=== PATIENT | male | born 1970 | race Caucasian/White ===

== ENCOUNTER 2017-02-08 03:48 | Emergency (ER) | payer OTHER ==
[~2017-02-08] VITALS: Ht 170.2 cm; Wt 76.5 kg
[2017-02-08 04:00] VITALS: Ht 170.2 cm; Wt 76.5 kg
[2017-02-08] MEDS ORDERED: ONDANSETRON 4 MG INJ IV STA (05:14)
[2017-02-08] MEDS ORDERED: morphine 4 MG/ML VIAL IV STA (05:14)
[2017-02-08 06:18] LABS: BASOPHIL # 0.1 10^3/ul (0.0-0.1); BASOPHILS % 0.7 % (0.0-2.0); EOSINOPHILS # 0.2 10^3/ul (0.0-0.5); EOSINOPHILS % 2.2 % (0.0-7.0); HEMOGLOBIN 15.3 g/dl (14.0-18.0); LYMPHOCYTES % 35.8 % (15.0-51.0); MEAN CORPUSCULAR HEMOGLOBIN 30.5 pg (29.0-33.0); MEAN CORPUSCULAR HGB CONC 36.4 g/dl (32.0-37.0); MEAN CORPUSCULAR VOLUME 83.7 fl (82.0-101.0); MONOCYTE # 0.7 10^3/ul (0.3-0.9); MONOCYTES % 8.4 % (0.0-11.0); NEUTROPHIL # 4.4 10^3/ul (1.6-7.5); NEUTROPHILS % 52.7 % (39.0-77.0); PLATELET COUNT 249 10^3/UL (140-415); RED BLOOD COUNT 5.02 10^6/ul (4.70-6.10); RED CELL DISTRIBUTION WIDTH 12.8 % (11.5-14.5); WHITE BLOOD COUNT 8.3 10^3/ul (4.8-10.8)
--- NOTE | 2017-02-08 06:34 | RADRPT ---
PROCEDURE: CHEST - 1 VIEW CLINICAL INDICATION: 46-year-old male with chest pain. TECHNIQUE: A single frontal AP portable view of the chest was performed. The images were reviewed on a PACS workstation. COMPARISON: None. FINDINGS: The cardiomediastinal silhouette has a normal appearance. There is no evidence for an infiltrate. There is no evidence for congestive heart failure. There is no evidence for pneumothorax. The osseou s structures are intact. IMPRESSION: No evidence for active cardiopulmonary disease. .Clem Short MD, MD Date Time Electronically viewed and signed by .Clem Short MD, on 02/08/2017 06:34 .M/
[2017-02-08 06:59] LABS: ALANINE AMINOTRANSFERASE 37 IU/L (13-69); ALBUMIN 4.5 g/dl (3.3-4.9); ALBUMIN/GLOBULIN RATIO 1.25; ALKALINE PHOSPHATASE 81 IU/L (42-121); ANION GAP 17 (8-16); ASPARTATE AMINO TRANSFERASE 21 IU/L (15-46); BILIRUBIN,INDIRECT 0.5 mg/dl (0-1.1); BILIRUBIN,TOTAL 0.5 mg/dl (0.2-1.3); BLOOD UREA NITROGEN 15 mg/dl (7-20); CALCIUM 9.7 mg/dl (8.4-10.2); CARBON DIOXIDE 26 mmol/L (21-31); CHLORIDE 102 mmol/L (97-110); CREATININE 0.69 mg/dl (0.61-1.24); GLUCOSE 233 mg/dl (70-220); POTASSIUM 4.1 mmol/L (3.5-5.1); SODIUM 141 mmol/L (135-144); TOTAL PROTEIN 8.1 g/dl (6.1-8.1)
--- NOTE | 2017-02-08 07:14 | ERD ---
ER Documentation Chief Complaint Chief Complaint chest pain x 3 days on and off w/ insomnia HPI 46-year-old male with left-sided chest pain for 4 days. His pain started after a coughing episode. He states the pain is in the anterior chest and radiates to his back. No alleviating or exacerbating factors. Pain is sharp, constant. It disturbs his sleep. He rates that a 7 out of 10. Denies pleurisy. No associated shortness of breath, hemoptysis, dizziness, diaphoresis. No family history of CAD. ROS All systems reviewed and are negative except as per history of present illness. Medications Home Meds Active Scripts Ibuprofen* (Motrin*) 600 Mg Tab, 600 MG PO Q6H Y for PAIN AND OR ELEVATED TEMP, #30 TAB Prov:JAMAICA WADE MD 02/08/17 Allergies Allergies: Coded Allergies: No Known Allergy (Unverified , 09/23/13) PMhx/Soc Medical and Surgical Hx: pt denies Surgical Hx Hx Miscellaneous Medical Probl: Yes (DM) Hx Alcohol Use: No Hx Substance Use: No Hx Tobacco Use: No Smoking Status: Never smoker FmHx Family History: diabetes Physical Exam Vitals Vital Signs Date Time Temp Pulse Resp B/P Pulse Ox O2 Delivery O2 Flow Rate FiO2 02/08/17 09:26 54 16 142/91 99 Room Air 02/08/17 07:23 54 18 131/88 100 Room Air 02/08/17 06:00 57 17 140/86 100 Room Air 02/08/17 06:00 Nasal Cannula 2 02/08/17 04:00 97.8 67 20 159/90 100 Physical Exam Const: Well-appearing, nontoxic, no apparent distress, speaking in full sentences Head: Atraumatic Eyes: Normal Conjunctiva ENT: Normal External Ears, Nose and Mouth. Neck: Full range of motion..~ No meningismus. Resp: Clear to auscultation bilaterally Chest wall : nontender to palpation, no crepitus: Cardio: Regular rate and rhythm, no murmurs, 2+ distal pulses Abd: Soft, non tender, non distended. Normal bowel sounds Skin: No petechiae or rashes Back: No midline or flank tenderness Ext: No cyanosis, or edema Neur: Awake and alert Psych: Normal Mood and Affect Result Diagram: 02/08/17 0556 02/08/17 0556 Results 24 hrs Laboratory Tests Test 02/08/17 05:56 White Blood Count 8.310^3/ul Red Blood Count 5.0210^6/ul Hemoglobin 15.3g/dl Hematocrit 42.0% Mean Corpuscular Volume 83.7fl Mean Corpuscular Hemoglobin 30.5pg Mean Corpuscular Hemoglobin Concent 36.4g/dl Red Cell Distribution Width 12.8% Platelet Count 40626^3/UL Mean Platelet Volume 10.0fl Neutrophils % 52.7% Lymphocytes % 35.8% Monocytes % 8.4% Eosinophils % 2.2% Basophils % 0.7% Nucleated Red Blood Cells % 0.0/100WBC Neutrophils # 4.410^3/ul Lymphocytes # 3.010^3/ul Monocytes # 0.710^3/ul Eosinophils # 0.210^3/ul Basophils # 0.110^3/ul Nucleated Red Blood Cells # 0.010^3/ul Sodium Level 141mmol/L Potassium Level 4.1mmol/L Chloride Level 102mmol/L Carbon Dioxide Level 26mmol/L Anion Gap 17 Blood Urea Nitrogen 15mg/dl Creatinine 0.69mg/dl Glucose Level 233mg/dl Calcium Level 9.7mg/dl Total Bilirubin 0.5mg/dl Direct Bilirubin 0.00mg/dl Indirect Bilirubin 0.5mg/dl Aspartate Amino Transf (AST/SGOT) 21IU/L Alanine Aminotransferase (ALT/SGPT) 37IU/L Alkaline Phosphatase 81IU/L Troponin I < 0.012ng/ml B-Type Natriuretic Peptide 30PG/ML Total Protein 8.1g/dl Albumin 4.5g/dl Globulin 3.60g/dl Albumin/Globulin Ratio 1.25 Current Medications Medications (Trade) Dose Ordered Sig/Ayla Route PRN Reason Start Time Stop Time Status Last Admin Dose Admin Morphine Sulfate (morphine) 4 mg ONCE STAT IV 02/08/17 05:14 02/08/17 05:15 DC 02/08/17 05:59 Ondansetron HCl 4 mg 4 mg ONCE STAT IV 02/08/17 05:14 02/08/17 05:15 DC 02/08/17 05:59 [facility] 02/08/17 07:52 02/08/17 07:53 DC Sodium Chloride (NS) 100 ml @ [facility]-MED ONCE .ROUTE 02/08/17 07:52 02/08/17 07:53 DC Ibuprofen (Motrin) 600 mg ONCE ONCE PO 02/08/17 09:00 02/08/17 09:01 DC 02/08/17 08:57 Procedures/MDM EMERGENT LABS AND DIAGNOSTIC STUDIES: Lab Results above were reviewed and interpreted by me. CBC unremarkable BMP unremarkable Troponin within normal limits 12-lead EKG was interpreted by Jayden Wade MD: Normal Sinus Rhythm Normal axis Normal intervals No acute ST or T wave changes suggestive of acute ischemia or STEMI. Radiology Results as interpreted by Radiology below were reviewed by Cliff Wade MD: Chest x-ray shows no acute abnormalities CTA chest does not show evidence of PE or dissection. No other acute abnormalities noted Initial Nursing notes reviewed. Previous Medical Records requested via the Electronic Health Record. EMERGENCY DEPARTMENT COURSE / MEDICAL DECISION MAKING: Patient is presenting with left-sided chest pain that has been constant for 4 days with no associated symptoms. Vitals are stable. Given the nature of his pain and the severity, CTA was ordered to evaluate for possible dissection. Cardiac workup was done as well. Exam and work up not consistent w/ ischemia, arrhythmia, PE or dissection. He was given morphine for his pain. Upon reevaluation, patient's thoracic symptoms have stabilized while in the department and are stable for outpatient follow up. Precautions were discussed. Follow-up with PCP was recommended in 1-2 days. Ibuprofen was given for pain. Departure Diagnosis: Primary Impression: Chest pain Chest pain type: unspecified Qualified Code: R07.9 - Chest pain, unspecified type Condition: Stable JAMAICA WADE MD Feb 08, 2017 07:14
[2017-02-08 07:22] LABS: TROPONIN-I < 0.012 ng/ml (0.00-0.12)
[2017-02-08] MEDS ORDERED: SOD CHLORIDE 0.9% 100 ML ONE (07:52)
[2017-02-08] MEDS ORDERED: IOHEXOL 100 ML ONE (07:52)
[2017-02-08 08:02] LABS: B-TYPE NATRIURETIC PEPTIDE 30 PG/ML (0-125)
--- NOTE | 2017-02-08 08:26 | RADRPT ---
PROCEDURE: CTA Chest. CLINICAL INDICATION: Chest pain TECHNIQUE: The study was performed utilizing a multidetector CT scanner. Direct spiral 1 mm axial sections were obtained from the thoracic inlet to the upper abdomen with the use of 100 cc of Omnipa que 350 nonionic intravenous contrast material and reformatted at 3 mm. Coronal and sagittal reforma tions were obtained. 3-D reconstructions were also obtained. The images were reviewed on a PACS wor kstation. One or more of the following dose reduction techniques were used: Automated exposure control. Adjustment of the mA and/or kV according to patient size. Use of iterative reconstruction technique. DICOM images are available DLP 519.0 mGycm CTDIvol 6.4 and 13.4 mGy COMPARISON: No prior studies are available for comparison. FINDINGS: Lungs: There is no lung consolidation or pleural effusion or pneumothorax. The airways are patent. There is no suspicious nodule or mass. Mediastinum: Normal. Cardiovascular: The pulmonary arteries are within normal limits with no filling defects present to s uggest pulmonary embolus. There is no evidence of dissection. There is no cardiomegaly. Lymph nodes: There are no enlarged axillary or mediastinal lymph nodes. Musculoskeletal: Degenerative changes are seen within the thoracic spine and shoulders with no acute osseous abnormality. Upper abdomen: There is no acute upper abdominal abnormality. Note is made of a fecal filled colon. Other: None IMPRESSION: No CT evidence for pulmonary embolus. There is no aortic dissection. No acute pulmonary process. RPTAT: AA .Mil Lou MD, MD Date Time Electronically viewed and signed by .Mil Lou MD, MD on 02/08/2017 08:26 .Yesy/
[2017-02-08] MEDS ORDERED: IBUP-1542 PO (08:38)
[2017-02-08] MEDS ORDERED: IBUPROFEN 600 MG TAB PO ONE (09:00)
[2017-02-08 09:26] VITALS: BP 142/91; PULSE 54; RESP 16
== END 2017-02-08 09:44 | disposition home or self-care (01) ==
LOC: E/R 03:48
DX: R07.9 Chest pain, unspecified (principal); E11.9 Type 2 diabetes mellitus without complications
CPT/HCPCS: 36415; 71010; 71275; 80053; 83880; 84484; 85025; 96374; 96375; J2270; J2405; Q9967; Z7502; Z7610; 93005